=== PATIENT | male | born 1945 | race Caucasian/White ===

== ENCOUNTER 2020-03-28 04:57 | Observation (INO) ==
--- NOTE | 2020-02-23 15:01 | PAT Medication Instructions ---
Medication Instructions Date of Service February 23, 2020 Home Medications aspirin [Aspir-81] 81 mg PO QAM atorvastatin [Lipitor] 40 mg PO HS cholecalciferol (vitamin D3) [Vitamin D3] 25 mcg PO QAM cyanocobalamin (vitamin B-12) [Vitamin B-12] 1,000 mcg PO QAM fexofenadine-pseudoephedrine [Iqra-D 12 Hour] 1 tab PO Q12H PRN omega-3 fatty acids [Fish Oil] 1,000 mg PO QAM STOP taking 2 weeks before surgery If surgery is within 2 weeks, stop taking as soon as possible. omega-3 fatty acids [Fish Oil] 1,000 mg PO QAM DO NOT take the morning of surgery cholecalciferol (vitamin D3) [Vitamin D3] 25 mcg PO QAM cyanocobalamin (vitamin B-12) [Vitamin B-12] 1,000 mcg PO QAM fexofenadine-pseudoephedrine [Iqra-D 12 Hour] 1 tab PO Q12H PRN Take morning of surgery With a small sip of water, OTHERWISE NOTHING TO EAT OR DRINK AFTER MIDNIGHT: aspirin [Aspir-81] 81 mg PO QAM (unless otherwise instructed by your surgeon) Take evening before surgery atorvastatin [Lipitor] 40 mg PO HS fexofenadine-pseudoephedrine [Iqra-D 12 Hour] 1 tab PO Q12H PRN (if needed) Other Notes If you have any questions please call us at [phone] or [phone] or [phone] or [phone]
--- NOTE | 2020-02-27 10:52 | Anesthesiology Consultation ---
Date of Service February 27, 2020 Assessment & Plan (1) Encounter for pre-operative examination: COVID Status: As of 02/26 assessment, patient denies travel to endemic area, known exposure/sick contacts, or symptoms of COVID19. Patient instructed that they and their household members must follow strict social distancing guidelines, wear a mask in public and avoid travel for 14 days prior to surgery. Preoperative COVID19 testing to be completed prior to surgery per surgeon's arra ngements. Patient made aware to self-isolate as much as possible between COVID testing and surgery. Note sent to PCP re: aortic dilation. Pt reports PCP has been monitoring with bi-yearly echos, most recent was 03/22/18 so patient is due for echo soon. Chart Review Chart Review: Acceptable Risk for Surgery (pending PCP clearance 03/06, response re: updating echo) and Patient seen in Pre Admission Testing Teaching & Discussion Instructed NPO after midnight before surgery, except medications with 15 cc of water. Medication instructions provided according to the PAT guidelines. History Surgery Operation Date: 03/28/20 08:30 Proposed Procedures p Total Knee Arthroplasty - Dereck Garnett DO Height/Weight Height: 6 ft 3 in Weight: 116.5 kg Allergies Allergy/AdvReac Type Severity Reaction Status Date / Time Sulfa (Sulfonamide Allergy Mild Rash Verified 02/22/20 14:07 Antibiotics) contrast dye Allergy Mild Rash Uncoded 02/22/20 14:07 Medications Home Medications Medication Instructions Recorded Confirmed Last Taken aspirin [Aspir-81] 81 mg PO QAM 02/22/20 02/22/20 Unknown atorvastatin [Lipitor] 40 mg PO HS 02/22/20 02/22/20 Unknown cholecalciferol (vitamin D3) 25 mcg PO QAM 02/22/20 02/22/20 Unknown [Vitamin D3] cyanocobalamin (vitamin B-12) 1,000 mcg PO QAM 02/22/20 02/22/20 Unknown [Vitamin B-12] fexofenadine-pseudoephedrine 1 tab PO Q12H PRN 02/22/20 02/22/20 Unknown [Iqra-D 12 Hour] omega-3 fatty acids [Fish Oil] 1,000 mg PO QAM 02/22/20 02/22/20 Unknown Past Medical History Medical History Enlarged aorta medical doctor is watching Hyperlipidemia Osteoarthritis Exercise / Class Metabolic Activity II 4-5 Yardwork/Stairs/Walk up hill Past Surgical History Surgical History Hx of colonoscopy Past Anesthesia History No Hx of Anesthesia Complications and No Family Hx of Anesthesia Complications History of PONV No Hx of PONV and No Hx of Motion Sickness Social History Smoking Status: Never smoker Do You Dip or Chew Tobacco: No Hx Alcohol Use: No Hx Substance Use: No substance use type: does not use Review of Systems Pt denies any recent chest pain, shortness of breath, palpitations, cough, fever, URI, or uncontrolled acid reflux. Physical Exam Vital Signs BP: 120/77 P: 68bpm SPO2: 95% RA T: 97.9 F R: 16 ENMT Mouth: + dental restorations (crowns); no chipped teeth and no loose teeth Thyromental Distance: > or= 3.5 Finger Breadths Mallampati Class: I Mouth / Teeth: 1. Crowns Neck normal visual inspection; neck extension not limited Respiratory normal respiratory effort Auscultation: lungs clear to auscultation bilaterally Cardiovascular Rate/Rhythm: regular rate and regular rhythm Heart Sounds: no murmur Testing Laboratory Results 02/27/20 11:07 02/27/20 11:07 PT 10.6 Seconds (9.0-12.0) 02/27/20 11:07 INR 1.0 (0.9-1.1) 02/27/20 11:07 APTT 26.1 Seconds (21.0-31.0) 02/27/20 11:07 Hemoglobin A1c 5.6 % (4.5-5.6) 02/27/20 11:07 Urine Color Yellow 02/27/20 11:07 Urine Appearance Clear (Clear) 02/27/20 11:07 Urine pH 5.5 (4.5-7.5) 02/27/20 11:07 Ur Specific [place] 1.021 (1.000-1.030) 02/27/20 11:07 Urine Protein Negative (Negative) 02/27/20 11:07 Urine Glucose (UA) Negative (Negative) 02/27/20 11:07 Urine Ketones Negative (Negative) 02/27/20 11:07 Urine Nitrite Negative (Negative) 02/27/20 11:07 Ur Leukocyte Esterase Negative (Negative) 02/27/20 11:07 Blood Type A Positive 02/27/20 11:07 Antibody Screen NEGATIVE 02/27/20 11:07 Electrocardiogram Date: 02/27/20 Findings: + NSR @ (61bpm) and + no change from (1992) Chest X-Ray Date: 02/27/20 Findings: + NAD Echocardiogram Date: 03/22/19 EF: 60-64% Aortic root is mildly enlarged at 4.3 cm. Ascending aorta is severely enlarged at 5.0 cm. Grade I diastolic dysfunction of LV. Mild AR. Compared to last available study, ascending aorta diameter is stable, aortic root diameter has increased.
--- NOTE | 2020-02-27 11:36 | XRay Report ---
XR chest Pre-admission PA/Lat CLINICAL HISTORY: Preoperative chest COMPARISON STUDY: No previous studies for comparison. FINDINGS: The cardiac and mediastinal contours are normal. There is no evidence of focal pulmonary co nsolidation. There is no evidence of failure. No pleural effusions are visualized.[Degenerative robles es are present within the dorsal spine. IMPRESSION: No active disease in the chest. ACT 112: Negative or not required by law. Electronically signed by: Darryl Morocho M.D. 02/27/2020 11:35 AM
[2020-02-27 12:28] LABS: Basophils # (auto) 0.03 K/uL (0-0.2); Basophils % (auto) 0.5 %; Eosinophils # (auto) 0.21 K/uL (0-0.5); Eosinophils % (auto) 3.4 %; Hematocrit (blood only) 42.4 % (42-52); Hemoglobin 14.2 g/dL (14.0-18.0); Immature Granulocytes # (auto) 0.01 K/uL (0.00-0.02); Immature Granulocytes % (auto) 0.2 %; Lymphocytes # (auto) 1.98 K/uL (1.2-3.4); Lymphocytes % (auto) 31.6 %; Mean Corpuscular Hemoglobin 31.4 pg (25-34); Mean Corpuscular Hgb Conc 33.5 g/dL (32-36); Mean Corpuscular Volume 93.8 fL (80-100); Mean Platelet Volume 10.4 fL (7.4-10.4); Monocytes # (auto) 0.73 K/uL (0.11-0.59); Monocytes % (auto) 11.7 %; Neutrophils % (auto) 52.6 %; Platelet Count 228 K/uL (130-400); RDW Coefficient of Variation 13.5 % (11.5-14.5); RDW Standard Deviation 46.2 fL (36.4-46.3); Red Blood Count 4.52 M/uL (4.7-6.1); White Blood Count 6.26 K/uL (4.8-10.8)
[2020-02-27 12:31] LABS: Appearance Urine Clear (Clear); Bilirubin Urine Negative (Negative); Blood Urine Negative (Negative); Color Urine Yellow; Glucose Urine UA Negative (Negative); Ketones Urine Negative (Negative); Leukocyte Esterase Urine Negative (Negative); Nitrite Urine Negative (Negative); Protein Urine Negative (Negative); Specific Gravity Urine 1.021 (1.000-1.030); Urobilinogen Urine Negative (Negative); pH Urine 5.5 (4.5-7.5)
[2020-02-27 12:42] LABS: Albumin Level 3.4 gm/dl (3.4-5.0); Calcium 8.7 mg/dl (8.5-10.1); Creatinine Clr Calc Pharmacy 84.6 ml/min; Est GFR (African American) 79.4; Est GFR (Non-African American) 68.5; Potassium 4.4 mmol/L (3.5-5.1)
[2020-02-27 12:46] LABS: Estimated Average Glucose 114 mg/dl; Hemoglobin A1C 5.6 % (4.5-5.6)
[2020-02-27 12:53] LABS: Partial Thromboplastin Ratio 0.9; Partial Thromboplastin Time 26.1 Seconds (21.0-31.0); Prothrombin Time 10.6 Seconds (9.0-12.0)
--- NOTE | 2020-02-28 06:08 | Electrocardiogram Report ---
Test Reason : Blood Pressure : / mmHG Vent. Rate : 061 BPM Atrial Rate : 061 BPM P-R Int : 204 ms QRS Dur : 102 ms QT Int : 418 ms P-R-T Axes : 065 063 062 degrees QTc Int : 420 ms Normal sinus rhythm Normal ECG When compared with ECG of 06-FEB-1993 10:12, No significant change was found Confirmed by Brian Cheema ([id number]) on 02/27/2020 5:09:30 PM Referred By: Dereck Garnett Confirmed By:William Cheema
--- NOTE | 2020-02-28 08:41 | History & Physical Report ---
Date of Service February 28, 2020 date of procedure: 03/28/20 procedure: Left Total Knee Arthroplasty Assessment & Plan (1) Arthritis of knee, left: Risks and benefits of procedure discussed in detail today, patient would like to proceed with a Left total knee replacement at [facility] as scheduled. will obtain medical clearance from Dr. Tierney prior to surgery as well as obtain PATs at [facility]. Will place on ASA 81mg po bid x 1 month post op, f/u 2 weeks post op for routine post-operative care and x-ray, sooner if having any problems. will make arrangements for HHPT at the time of discharge. At this point in time, has failed conservative measures and would like to proceed with surgical intervention. The risks and benefits have been discussed including, but not limited to, risk of infection, nerve injury, stiffness, loss of motion, failure to improve, etc. Reasonable outcomes and options of treatment were discussed. An explanation of appropriate alternatives to the procedure that may be advantageous were discussed and their risks and benefits, as well as the risks and benefits of not proceeding with treatment. I offered to answer any additional inquiries concerning the treatment involved. All the patient's questions were answered. The patient is agreeable, understanding of the treatment plan and alternatives, and wishes to proceed with the treatment plan. History of Present Illness Chief Complaint: left knee pain Primary Care Provider: José Miguel Mata DO Cy is a 74 year old male who complains of left knee pain, presents for pre- op evaluation prior to a left total knee replacement by dr Garnett at [facility]. He complains of pain, decreased range of motion in the left knee. He states that the symptoms have been chronic and non-traumatic and states that the symptoms are moderate-severe. The pain is described as aching, sharp and throbbing. His symptoms are aggravated by ascending stairs, daily activities, first steps while awake walking. Prior NSAIDs include IBU and aleve. He has been treated with previous cortisone injections in the past without much relief. His x-rays show advanced DJD of his left knee with bone on bone changes, osteophyte formation and varus alignment. Allergies Allergy/AdvReac Type Severity Reaction Status Date / Time Sulfa (Sulfonamide Allergy Mild Rash Verified 02/22/20 14:07 Antibiotics) contrast dye Allergy Mild Rash Uncoded 02/22/20 14:07 Home Medications Home Medications Medication Instructions Recorded Confirmed Type aspirin [Aspir-81] 81 mg PO QAM 02/22/20 02/22/20 History atorvastatin [Lipitor] 40 mg PO HS 02/22/20 02/22/20 History cholecalciferol (vitamin D3) 25 mcg PO QAM 02/22/20 02/22/20 History [Vitamin D3] cyanocobalamin (vitamin B-12) 1,000 mcg PO QAM 02/22/20 02/22/20 History [Vitamin B-12] fexofenadine-pseudoephedrine 1 tab PO Q12H PRN 02/22/20 02/22/20 History [Iqra-D 12 Hour] omega-3 fatty acids [Fish Oil] 1,000 mg PO QAM 02/22/20 02/22/20 History Past Med/Surg History Medical History Enlarged aorta medical doctor is watching Hyperlipidemia Osteoarthritis Surgical History Hx of colonoscopy Social History Smoking Status: Never smoker Second Hand Exposure: No; Do You Dip or Chew Tobacco: No; Tobacco Cessation Education Requested by Patient: No Hx Alcohol Use: No Hx Substance Use: No Preferred Language: Kazakh Communication Ability: Effective Supervisor Mixing Required: No Beliefs That Will Affect Care: None Current Living Situation: Spouse Other Information That Helps Us Care for You: No Feels Safe at Home: Yes Safety Concerns: Feels Safe At This Time Assistive Devices: Glasses Review of Systems Review of Systems: All systems reviewed & are unremarkable except as noted in HPI & below Constitutional: no fever, no chills and no sweats Respiratory: no cough and no dyspnea Cardiovascular: no chest pain, no dyspnea and no orthopnea Gastrointestinal: no abdominal pain, no nausea and no vomiting Musculoskeletal: as per Subjective / HPI Physical Exam Physical Exam: HT: 6ft 3in WT: 116.5kg BP: 126/84 Pulse: 65 Constitutional: WD/WN, vitals as above no acute distress Respiratory: normal respiratory effort, lungs clear to auscultation no respiratory distress, no labored breathing and does not use accessory muscles Cardiovascular: RRR, no murmur, no edema Gastrointestinal (Abdomen): normal bowel sounds, soft, nontender, no hepatosplenomegaly Musculoskeletal: Knee: + knee abnormal to inspection (left knee), + deformity (varus alignment), + effusion (+1 effusion), + limited ROM of knee (ROM 0/3/110), + knee ROM with crepitation, + joint line tenderness (medial joint line) and + Bull's sign positive; no skin erythema, no ecchymosis, no valgus laxity, no varus laxity, anterior drawer test negative, Uma's sign negative and pivot shift test negative Results & Data Results & Data ([facility]) Laboratory Results Laboratory Results WBC 6.26 K/uL (4.8-10.8) 02/27/20 11:07 RBC 4.52 M/uL (4.7-6.1) L 02/27/20 11:07 Hgb 14.2 g/dL (14.0-18.0) 02/27/20 11:07 Hct 42.4 % (42-52) 02/27/20 11:07 MCV 93.8 fL (80-100) 02/27/20 11:07 MCH 31.4 pg (25-34) 02/27/20 11:07 MCHC 33.5 g/dL (32-36) 02/27/20 11:07 RDW Std Deviation 46.2 fL (36.4-46.3) 02/27/20 11:07 RDW Coeff of Yue 13.5 % (11.5-14.5) 02/27/20 11:07 Plt Count 228 K/uL (130-400) 02/27/20 11:07 MPV 10.4 fL (7.4-10.4) 02/27/20 11:07 Immature Gran % (Auto) 0.2 % 02/27/20 11:07 Neut % (Auto) 52.6 % 02/27/20 11:07 Lymph % (Auto) 31.6 % 02/27/20 11:07 Otero % (Auto) 11.7 % 02/27/20 11:07 Eos % (Auto) 3.4 % 02/27/20 11:07 Baso % (Auto) 0.5 % 02/27/20 11:07 Neut # (Auto) 3.30 K/uL (1.4-6.5) 02/27/20 11:07 Lymph # (Auto) 1.98 K/uL (1.2-3.4) 02/27/20 11:07 Otero # (Auto) 0.73 K/uL (0.11-0.59) H 02/27/20 11:07 Eos # (Auto) 0.21 K/uL (0-0.5) 02/27/20 11:07 Baso # (Auto) 0.03 K/uL (0-0.2) 02/27/20 11:07 Immature Gran # (Auto) 0.01 K/uL (0.00-0.02) 02/27/20 11:07 PT 10.6 Seconds (9.0-12.0) 02/27/20 11:07 INR 1.0 (0.9-1.1) 02/27/20 11:07 APTT 26.1 Seconds (21.0-31.0) 02/27/20 11:07 PTT Ratio 0.9 02/27/20 11:07 Sodium 141 mmol/L (136-145) 02/27/20 11:07 Potassium 4.4 mmol/L (3.5-5.1) 02/27/20 11:07 Chloride 111 mmol/L (98-107) H 02/27/20 11:07 Carbon Dioxide 27 mmol/L (21-32) 02/27/20 11:07 Anion Gap 3.0 (3-11) 02/27/20 11:07 BUN 21 mg/dl (7-18) H 02/27/20 11:07 Creatinine 1.07 mg/dl (0.6-1.4) 02/27/20 11:07 Est Cr Clr Drug Dosing 84.6 ml/min 02/27/20 11:07 Est GFR ( Amer) 79.4 02/27/20 11:07 Est GFR (Non-Af Amer) 68.5 02/27/20 11:07 BUN/Creatinine Ratio 20.0 (10-20) 02/27/20 11:07 Glucose 74 mg/dl (70-99) 02/27/20 11:07 Estimat Average Glucose 114 mg/dl 02/27/20 11:07 Hemoglobin A1c 5.6 % (4.5-5.6) 02/27/20 11:07 Calcium 8.7 mg/dl (8.5-10.1) 02/27/20 11:07 Albumin 3.4 gm/dl (3.4-5.0) 02/27/20 11:07 Urine Color Yellow 02/27/20 11:07 Urine Appearance Clear (Clear) 02/27/20 11:07 Urine pH 5.5 (4.5-7.5) 02/27/20 11:07 Ur Specific [place] 1.021 (1.000-1.030) 02/27/20 11:07 Urine Protein Negative (Negative) 02/27/20 11:07 Urine Glucose (UA) Negative (Negative) 02/27/20 11:07 Urine Ketones Negative (Negative) 02/27/20 11:07 Urine Blood Negative (Negative) 02/27/20 11:07 Urine Nitrite Negative (Negative) 02/27/20 11:07 Urine Bilirubin Negative (Negative) 02/27/20 11:07 Urine Urobilinogen Negative (Negative) 02/27/20 11:07 Ur Leukocyte Esterase Negative (Negative) 02/27/20 11:07 Blood Type A Positive 02/27/20 11:07 Antibody Screen NEGATIVE 02/27/20 11:07 Diagnostic Findings Left Knee X-ray demonstrates advanced degenerative changes to the left knee, greatest medial compartments and patellofemoral joint, showing joint space narrowing, osteophyte formation and subchondral sclerosis. no acute bony pathology noted.
[2020-03-28] MEDS ORDERED: LR 500ML BOLUS, THEN 15ML/HR IV SCH (06:00)
[2020-03-28] MEDS ORDERED: FAMOTIDINE 20 MG TAB PO SCH (06:00)
[2020-03-28] MEDS ORDERED: TRANEXAMIC ACID 1,000 MG **IV Intra-op IV SCH (06:00)
[2020-03-28] MEDS ORDERED: ROPIVACAINE 0.5% HCL/PF 150 MG, BUPIVACAINE 0.5% MPF 30 ML, EPINEPHrine 30MG/30ML (OR U... INFIL SCH (06:00)
[2020-03-28] MEDS ORDERED: ceFAZolin 2000MG 2,000 MG/15 ML SYR IV SCH (06:00)
[2020-03-28] MEDS ORDERED: ACETAMINOPHEN 500 MG TAB PO SCH (06:00)
[2020-03-28] MEDS ORDERED: dexAMETHasone 4 MG TAB PO SCH (06:00)
[2020-03-28] MEDS ORDERED: TRANEXAMIC ACID 1,000 MG **IV Pre-op IV SCH (06:00)
[2020-03-28] MEDS ORDERED: GABAPENTIN 300 MG CAP PO SCH (06:00)
[2020-03-28] MEDS ORDERED: METOCLOPRAMIDE HCL 10 MG TABLET PO SCH (06:00)
[2020-03-28] MEDS ORDERED: ROPIVACAINE 0.5% 5 MG/ML 30 ML VIAL ONE (06:23)
[2020-03-28] MEDS ORDERED: BUPIVACAINE 0.5 % 5 MG/1 ML PF 10ML VIAL ONE (06:23)
[2020-03-28] MEDS ORDERED: BACITRACIN INJ 50,000 UNIT VIAL ONE (06:30)
[2020-03-28] MEDS ORDERED: ORTHO JOINT ANESTHETIC ONE (06:30)
[2020-03-28] MEDS ORDERED: LIDOCAINE HCL 2% 2 ML VIAL/AMP(20MG/ML) INFIL ONE (06:35)
[2020-03-28] MEDS ORDERED: MIDAZOLAM HCL 1 MG/ML 2ML VIAL ONE (06:35)
[2020-03-28] MEDS ORDERED: PROPOFOL IV EMULSION 10 MG/ML 20 ML VIAL IV ONE ×2 (06:35→08:38)
[2020-03-28] MEDS ORDERED: ePHEDrine sulfate 50 MG/ML AMP IV PRN (06:50)
[2020-03-28] MEDS ORDERED: HYDROmorphone INJ 1 MG/ML SYRINGE IV PRN ×2 (06:50→09:28)
[2020-03-28] MEDS ORDERED: KETOROLAC 30 MG/ML VIAL IV PRN (06:50)
[2020-03-28] MEDS ORDERED: ATROPINE SULFATE 0.1 MG/ML 10ML SYR IV PRN (06:50)
[2020-03-28] MEDS ORDERED: ONDANSETRON INJ 2 MG/ML 2 ML VIAL IV PRN ×2 (06:50→09:28)
--- NOTE | 2020-03-28 07:12 | History & Physical Bridge Note ---
Date of Service March 28, 2020 History & Physical Bridge Note I have examined the patient, reviewed the History & Physical and in the interval since the performance of the History & Physical I have noted the following changes of clinical significance: no changes noted
--- NOTE | 2020-03-28 08:32 | Operative Report ---
Post Operative Report Pre & Post Diagnosis Operation Date: 03/28/20 07:00 Pre-Op Diagnosis: Left knee degenerative joint disease Post-Op Diagnosis: Left knee degenerative joint disease I identified the patient and participated in the time-out.: Yes Procedure 10 polyethylene 35 oval patella 8 tibiaUtilizing Babin & Neph neris 2 patient matched total knee arthroplasty size 8 femur Operation Date: 03/28/20 07:00 Actual Procedures p Left Total Knee Arthroplasty, Cemented(Left) - Dereck Garnett DO Surgeon Dereck Garnett DO Upholstery Estimator Karl MARIN Estimated Blood Loss 5 Findings Consistent with Post-Op Diagnosis Patient presents with severe end-stage tricompartmental degenerative joint disease varus alignment subchondral sclerosis marginal osteophytes [id number] eburnated bone moderate to large effusion with varus alignment left knee Specimens Bone and cartilage Drains Medium bore Hemovac Anesthesia Type MAC Spinal Regional Complications none Disposition Accompanied Patient To Recovery: No Disposition: Recovery Room Indications Patient presents with his severe end-stage tricompartmental degenerative joint disease after failed attempted conservative management with physical therapy anti-inflammatories relative rest activity modification corticosteroid injection Visco supplementation the above intraoperative findings were noted. Description of Procedure After proper prepping and draping of the left lower extremity anterior midline incision was made over the region of the extensor extensor mechanism after meticulous hemostasis was obtained and maintained in subcutaneous tissues a medial parapatellar incision was made The patella was subluxed lateralward the medial lateral gutter were cleaned from any hypertrophic synovitis and scar tissue of the distal femoral block was placed and the distal femoral osteotomy cut was made subsequently the chamfers anterior and posterior osteotomy cuts were made utilizing the 4-in-1 block the tibia was subsequently subluxed anteriorward medial and ateral meniscal remnants were excised in their entirety remnants of the anterior and posterior cruciate ligaments were excised in their entirety excellent exposure of the proximal tibia was obtained the tibial osteotomy guide was placed on the proximal tibial osteotomy cut was made once again the knee was irrigated with copious amounts of sterile saline solution the patella was subsequently everted lateralward thickened scar tissue around the patella was removed the patella was subsequently cut utilizing a freehand technique and was drilled prepared for final preparation and placement of patella socially flexion-extension gaps were checked and the equal and symmetric trials were placed to the appropriate femoral and tibial trials with poly-spacer being placed for equal flexion and extension gaps and full range of motion including extension to 0 and flexion to 140 the trial components after having been taken to recovery range of motion was subsequently removed meticulous hemostasis was obtained and maintained subsequently a knee block injection of chante int cocktail including ropivacaine 0.5% 150 mg. Bupivacaine 0.5% epinephrine 1- 200,030 mL's toradol 30 mg dexamethasone 4 mg ketamine 10 mg clonidine 100 micrograms normal saline solution 30 mg was infiltrated into the soft tissues of the posterior knee medial lateral gutters and periosteal synovium special attention was paid to protect neurovascular structures at all times subsequently trial components having been removed the knee was irrigated with sterile saline solution. debris was removed the proximal tibia was subsequently prepared and was made ready for the placement of the tibial component tibial component was also cemented and tamped into position the femoral component was subsequently placed and cemented in the position the patellar component was subsequently cemented in position because hemostasis once again obtained and maintained wound having been thoroughly irrigated with debridement and debridement lavage was performed as well as a medial parapatellar incision closed with #1 Vicryl in interrupted fashion subcutaneous was closed with #2 Vicryl skin was closed with skin clips. PA-C was necessary for prepping and drapping as well as wound closure of deep fascia Sub cutaneous tissue and skin and was necessary for the case. A sterile compressive dressing was placed patient was taken to recovery in stable condition of report dictated by Tamir I attest to the content of the Intraoperative Record and any orders documented therein. Any exceptions are noted below. I attest to the content of the Intraoperative Record and any orders documented therein. Any exceptions are noted below.
[2020-03-28] MEDS ORDERED: MAGNESIUM HYDROXIDE SUSP 30 ML UDC PO PRN (09:28)
[2020-03-28] MEDS ORDERED: diphenhydrAMINE Capsule 25 MG CAP PO PRN (09:28)
[2020-03-28] MEDS ORDERED: NALOXONE HCL 0.4 MG/1 ML VIAL/CARP IV PRN (09:28)
[2020-03-28] MEDS ORDERED: METOCLOPRAMIDE HCL INJ 5 MG/ML 2 ML VIAL IV PRN (09:28)
[2020-03-28] MEDS ORDERED: bisacodyL 10 MG SUPP PR PRN (09:28)
[2020-03-28] MEDS ORDERED: SODIUM CHLORIDE 0.9% 1000ML 1,000 ML IV SCH (09:30)
--- NOTE | 2020-03-28 10:01 | XRay Report ---
XR knee LT 1 or 2V routine HISTORY: 74 years-old Male Surgical Post Op [knee total joint arthroplasty COMPARISON: None TECHNIQUE: 2 views of the left knee FINDINGS: Left knee total joint arthroplasty and patella resurfacing. 1.6 cm radiodensity projecting of the med ial joint space may reflect cement material. Surgical drainage catheter. Expected post surgical soft tissue swelling and deep tissue air. No acute fracture or malalignment. IMPRESSION: Satisfactory alignment of the left knee total joint arthroplasty. ACT 112: Negative or not required by law. The above report was generated using voice recognition software. It may contain grammatical, syntax o r spelling errors. Electronically signed by: Victoriano Sierra M.D. 03/28/2020 10:00 AM
--- NOTE | 2020-03-28 10:22 | Anesthesiology Progress Note ---
Date of Service March 28, 2020 Anesthesia Post Procedure Vital Signs Vital Signs: Temp Pulse Pulse Resp BP BP Pulse Ox 03/28/20 10:10 60 14 103/66 94 03/28/20 10:00 58 L 16 101/61 94 03/28/20 09:50 57 L 12 92/64 L 95 03/28/20 09:40 54 L 12 98/70 L 94 03/28/20 09:30 59 L 12 96/67 L 95 03/28/20 09:20 60 16 92/60 L 95 03/28/20 09:10 68 16 102/62 99 03/28/20 09:07 36.6 C 65 18 97/56 L 98 03/28/20 05:22 36.4 C L 56 L 18 123/86 96 Pain Intensity Left Knee: Pain Intensity: 0 Transfer of Care Handoff Completed per policy Notes Mental Status: alert / awake / arousable Patient Amnestic to Procedure: Yes Nausea / Vomiting: adequately controlled Pain: adequately controlled Airway Patency, RR, SpO2: stable & adequate BP & HR: stable & adequate Hydration State: stable & adequate Neuraxial Anesthesia: was administered and sensory block is resolving Anesthetic Complications: no major complications apparent
[2020-03-28] MEDS: KETOROLAC TROMETHAMINE 15 MG/ML VIAL IV SCH ×3 (11:40→23:00)
[2020-03-28] MEDS: ACETAMINOPHEN 500 MG TAB PO SCH ×2 (13:56→22:57)
[2020-03-28] MEDS: ceFAZolin 2000MG 2,000 MG/15 ML SYR IV SCH ×2 (14:58→22:59)
[2020-03-28] MEDS: oxyCODONE HCL IR 5 MG TAB (IMMEDIATE RELEASE) PO PRN (18:06)
[2020-03-28] MEDS: ASPIRIN 81 MG ECTAB PO SCH (20:20)
[2020-03-28] MEDS: DOCUSATE SODIUM 100 MG CAP PO SCH (20:21)
[2020-03-28] MEDS ORDERED: ATORVASTATIN 40 MG TAB PO SCH (21:00)
[2020-03-28] MEDS ORDERED: SENNA 8.6 MG TAB PO SCH (21:00)
[2020-03-29 03:12] VITALS: O2SAT 95
[2020-03-29] MEDS: ACETAMINOPHEN 500 MG TAB PO SCH ×2 (05:31→09:53)
[2020-03-29] MEDS: KETOROLAC TROMETHAMINE 15 MG/ML VIAL IV SCH (05:31)
[2020-03-29 07:08] LABS: Hematocrit (blood only) 34.7 % (42-52); Hemoglobin 11.8 g/dL (14.0-18.0); Mean Corpuscular Hemoglobin 31.7 pg (25-34); Mean Corpuscular Volume 93.3 fL (80-100); Mean Platelet Volume 10.5 fL (7.4-10.4); Platelet Count 172 K/uL (130-400); RDW Coefficient of Variation 13.5 % (11.5-14.5); RDW Standard Deviation 46.1 fL (36.4-46.3); Red Blood Count 3.72 M/uL (4.7-6.1); White Blood Count 13.38 K/uL (4.8-10.8)
[2020-03-29 07:23] VITALS: PULSE 53; TEMP 97.5
[2020-03-29 07:46] LABS: BUN Creatinine Ratio 21.1 (10-20); Calcium 8.1 mg/dl (8.5-10.1); Est GFR (African American) 74.3; Est GFR (Non-African American) 64.1
--- NOTE | 2020-03-29 08:09 | Orthopedic Progress Note ---
Date of Service March 29, 2020 Assessment & Plan (1) History of total left knee replacement: POD #1 s/p Left TKA pt/ot dvt proph with EUGENIA/SCD/ASA plan for d/c home with HHPT later today Admission and Anticipated Discharge Date Admission Date: March 28, 2020 Subjective POD #1 s/p Left TKA Review of Systems Constitutional: no fever, no chills and no sweats Respiratory: no cough and no dyspnea Cardiovascular: no chest pain and no dyspnea Gastrointestinal: no abdominal pain, no nausea and no vomiting Physical Exam Physical Exam: Vital Signs Temp 36.4 C L 03/29/20 07:20 Pulse 53 L 03/29/20 07:20 Resp 16 03/29/20 07:20 BP 107/63 03/29/20 07:20 Pulse Ox 95 03/29/20 07:20 Intake & Output 03/28/20 03/29/20 03/29/20 18:59 06:59 18:59 Intake Total 1700 / 3121.667 1421.667 / 3121.66 7 Output Total 65 / 1465 1400 / 1465 600 / 600 Balance 1635 / 1656.667 21.667 / 1656.667 -600 / -600 Intake: IV 900 / 1701.667 801.667 / 1701.667 Lr 1,000 ml @ 15 mls/hr IV . 700 / 700 Q24H [facility] Rx#:[id number] Nss 1000ML 1,0 00 ml @ 100 mls/ 801.667 / 801.667 hr IV .Q10H [facility] Rx#:[id number] TRANEXAMIC ACI D / 0.7% NACL 1, 200 / 200 000 mg In 100 ml @ 600 mls/hr IV TODAY@0600 [facility] Rx#:[id number] IV Perioperative 800 / 800 Oral 620 / 620 Output: Urine 1100 / 1100 600 / 600 Estimated Blood Loss 5 / 5 Drain Output 60 / 360 300 / 360 Left Hemovac # 1 60 / 360 300 / 360 Other: # Unmeasured Voi ds 1 Constitutional: WD/WN, vitals as above no acute distress Musculoskeletal: Left Leg: NVDI, calf SNT, negative darrion sign. DP palpable, able to wiggle toes/ankle movement without difficulty. dressing clean dry and intact. Results & Data ([facility]) Vital Signs (Past 12 Hours) Vital Signs Temp Pulse Resp BP BP Pulse Ox 03/29/20 07:20 36.4 C L 53 L 16 107/63 95 03/29/20 03:11 36.8 C 57 L 18 91/55 L 95 03/28/20 23:32 91/54 L 03/28/20 23:30 36.6 C 60 16 89/58 L 94 Laboratory Results Laboratory Results WBC 13.38 K/uL (4.8-10.8) H 03/29/20 06:28 RBC 3.72 M/uL (4.7-6.1) L 03/29/20 06:28 Hgb 11.8 g/dL (14.0-18.0) L 03/29/20 06:28 Hct 34.7 % (42-52) L 03/29/20 06:28 MCV 93.3 fL (80-100) 03/29/20 06:28 MCH 31.7 pg (25-34) 03/29/20 06:28 MCHC 34.0 g/dL (32-36) 03/29/20 06:28 RDW Std Deviation 46.1 fL (36.4-46.3) 03/29/20 06:28 RDW Coeff of Yue 13.5 % (11.5-14.5) 03/29/20 06:28 Plt Count 172 K/uL (130-400) 03/29/20 06:28 MPV 10.5 fL (7.4-10.4) H 03/29/20 06:28 Immature Gran % (Auto) 0.2 % 02/27/20 11:07 Neut % (Auto) 52.6 % 02/27/20 11:07 Lymph % (Auto) 31.6 % 02/27/20 11:07 [place] % (Auto) 11.7 % 02/27/20 11:07 Eos % (Auto) 3.4 % 02/27/20 11:07 Baso % (Auto) 0.5 % 02/27/20 11:07 Neut # (Auto) 3.30 K/uL (1.4-6.5) 02/27/20 11:07 Lymph # (Auto) 1.98 K/uL (1.2-3.4) 02/27/20 11:07 [place] # (Auto) 0.73 K/uL (0.11-0.59) H 02/27/20 11:07 Eos # (Auto) 0.21 K/uL (0-0.5) 02/27/20 11:07 Baso # (Auto) 0.03 K/uL (0-0.2) 02/27/20 11:07 Immature Gran # (Auto) 0.01 K/uL (0.00-0.02) 02/27/20 11:07 PT 10.6 Seconds (9.0-12.0) 02/27/20 11:07 INR 1.0 (0.9-1.1) 02/27/20 11:07 APTT 26.1 Seconds (21.0-31.0) 02/27/20 11:07 PTT Ratio 0.9 02/27/20 11:07 Sodium 142 mmol/L (136-145) 03/29/20 06:28 Potassium mmol/L (3.5-5.1) 03/29/20 06:28 Chloride 112 mmol/L (98-107) H 03/29/20 06:28 Carbon Dioxide 24 mmol/L (21-32) 03/29/20 06:28 Anion Gap 6.0 (3-11) 03/29/20 06:28 BUN 24 mg/dl (7-18) H 03/29/20 06:28 Creatinine 1.13 mg/dl (0.6-1.4) 03/29/20 06:28 Est Cr Clr Drug Dosing 79.0 ml/min 03/29/20 06:28 Est GFR ( Amer) 74.3 03/29/20 06:28 Est GFR (Non-Af Amer) 64.1 03/29/20 06:28 BUN/Creatinine Ratio 21.1 (10-20) H 03/29/20 06:28 Glucose 95 mg/dl (70-99) 03/29/20 06:28 Estimat Average Glucose 114 mg/dl 02/27/20 11:07 Hemoglobin A1c 5.6 % (4.5-5.6) 02/27/20 11:07 Calcium 8.1 mg/dl (8.5-10.1) L 03/29/20 06:28 Albumin 3.4 gm/dl (3.4-5.0) 02/27/20 11:07 Urine Color Yellow 02/27/20 11:07 Urine Appearance Clear (Clear) 02/27/20 11:07 Urine pH 5.5 (4.5-7.5) 02/27/20 11:07 Ur Specific [place] 1.021 (1.000-1.030) 02/27/20 11:07 Urine Protein Negative (Negative) 02/27/20 11:07 Urine Glucose (UA) Negative (Negative) 02/27/20 11:07 Urine Ketones Negative (Negative) 02/27/20 11:07 Urine Blood Negative (Negative) 02/27/20 11:07 Urine Nitrite Negative (Negative) 02/27/20 11:07 Urine Bilirubin Negative (Negative) 02/27/20 11:07 Urine Urobilinogen Negative (Negative) 02/27/20 11:07 Ur Leukocyte Esterase Negative (Negative) 02/27/20 11:07 Blood Type A Positive 02/27/20 11:07 Antibody Screen NEGATIVE 02/27/20 11:07 Diagnostic Findings XR knee LT 1 or 2V routine HISTORY: 74 years-old Male Surgical Post Op [knee total joint arthroplasty COMPARISON: None TECHNIQUE: 2 views of the left knee FINDINGS: Left knee total joint arthroplasty and patella resurfacing. 1.6 cm radiodensity projecting of the medial joint space may reflect cement material. Surgical drainage catheter. Expected post surgical soft tissue swelling and deep tissue air. No acute fracture or malalignment. IMPRESSION: Satisfactory alignment of the left knee total joint arthroplasty. finding noted, when compared to pre-op films, no changes noted to the radiodensity along medial joint space.
[2020-03-29] MEDS ORDERED: CYANOCOBALAMIN 500 MCG TABLET (VITAMIN B-12) PO SCH (09:00)
[2020-03-29] MEDS ORDERED: MULTIVITAMIN TAB PO SCH (09:00)
[2020-03-29] MEDS ORDERED: CHOLECALCIFEROL 1,000 UNITS 25 MCG TAB PO SCH (09:00)
--- NOTE | 2020-03-29 09:07 | Anesthesiology Progress Note ---
Date of Service March 29, 2020 Anesthesia Post Procedure Vital Signs Vital Signs: Temp Pulse Pulse Resp BP BP Pulse Ox 03/29/20 07:20 36.4 C L 53 L 16 107/63 95 03/29/20 03:11 36.8 C 57 L 18 91/55 L 95 03/28/20 23:32 91/54 L 03/28/20 23:30 36.6 C 60 16 89/58 L 94 03/28/20 19:38 36.8 C 65 18 99/61 L 92 03/28/20 16:00 36.2 C L 69 18 103/67 92 03/28/20 13:46 75 16 100/70 91 03/28/20 11:15 60 16 104/68 92 03/28/20 10:30 57 L 14 100/65 94 03/28/20 10:20 36.7 C 55 L 14 100/65 94 03/28/20 10:10 60 14 103/66 94 03/28/20 10:00 58 L 16 101/61 94 03/28/20 09:50 57 L 12 92/64 L 95 03/28/20 09:40 54 L 12 98/70 L 94 03/28/20 09:30 59 L 12 96/67 L 95 03/28/20 09:20 60 16 92/60 L 95 03/28/20 09:10 68 16 102/62 99 Pain Intensity Left Knee: Pain Intensity: 2 Notes Mental Status: alert / awake / arousable and participated in evaluation Nausea / Vomiting: adequately controlled Pain: adequately controlled Airway Patency, RR, SpO2: stable & adequate BP & HR: stable & adequate Hydration State: stable & adequate
[2020-03-29] MEDS: ASPIRIN 81 MG ECTAB PO SCH (09:52)
[2020-03-29] MEDS: DOCUSATE SODIUM 100 MG CAP PO SCH (09:53)
[2020-03-29] MEDS: oxyCODONE HCL IR 5 MG TAB (IMMEDIATE RELEASE) PO PRN (09:54)
[2020-03-29 11:44] VITALS: BP 89/58
--- NOTE | 2020-03-30 07:13 | Discharge Summary ---
Date of Service date of discharge: March 29, 2020 date of admission: 03-28-20 Admission HPI Per Admitting Provider Cy is a 74 year old male who complains of left knee pain, presents for pre- op evaluation prior to a left total knee replacement by dr Garnett at [facility]. He complains of pain, decreased range of motion in the left knee. He states that the symptoms have been chronic and non-traumatic and states that the symptoms are moderate-severe. The pain is described as aching, sharp and throbbing. His symptoms are aggravated by ascending stairs, daily activities, first steps while awake walking. Prior NSAIDs include IBU and aleve. He has been treated with previous cortisone injections in the past without much relief. His x-rays show advanced DJD of his left knee with bone on bone changes, osteophyte formation and varus alignment. Principal Diagnosis left knee osteoarthritis Discharge Exam Vital Signs Temp 36.4 C L 03/29/20 08:30 Pulse 53 L 03/29/20 08:30 Resp 16 03/29/20 08:30 BP 89/58 L 03/29/20 08:30 Pulse Ox 95 03/29/20 08:30 Intake & Output 03/29/20 03/30/20 03/30/20 18:59 06:59 18:59 Output Total 1150 / 1150 Balance -1150 / -1150 Weight 113.126 kg Output: Urine 1150 / 1150 Constitutional WD/WN, vitals as above no acute distress Musculoskeletal left knee: NVDI, calf SNT, negative darrion sign. DP palpable, able to wiggle toes/ankle movement without difficulty. dressing clean dry and intact. expected post-operative bruising noted. Discharge Data Allergies Allergy/AdvReac Type Severity Reaction Status Date / Time Sulfa (Sulfonamide Allergy Mild Rash Verified 03/28/20 05:26 Antibiotics) contrast dye Allergy Mild Rash Uncoded 03/28/20 05:26 Consultations 03/28/20 09:28 Consult Case Management - Discharge Planning Routine Procedures Performed Operation Date: 03/28/20 07:00 Actual Procedures p Left Total Knee Arthroplasty, Cemented(Left) - Dereck Garnett DO Ordered Studies 03/28/20 05:00 US - OR guided needle placemen Stat Hospital Course (1) History of total left knee replacement: POD #1 s/p Left TKA pt/ot dvt proph with EUGENIA/SCD/ASA plan for d/c home with HHPT later today Laboratory Results WBC 13.38 K/uL (4.8-10.8) H 03/29/20 06:28 RBC 3.72 M/uL (4.7-6.1) L 03/29/20 06:28 Hgb 11.8 g/dL (14.0-18.0) L 03/29/20 06:28 Hct 34.7 % (42-52) L 03/29/20 06:28 MCV 93.3 fL (80-100) 03/29/20 06:28 MCH 31.7 pg (25-34) 03/29/20 06:28 MCHC 34.0 g/dL (32-36) 03/29/20 06:28 RDW Std Deviation 46.1 fL (36.4-46.3) 03/29/20 06:28 RDW Coeff of Yue 13.5 % (11.5-14.5) 03/29/20 06:28 Plt Count 172 K/uL (130-400) 03/29/20 06:28 MPV 10.5 fL (7.4-10.4) H 03/29/20 06:28 Immature Gran % (Auto) 0.2 % 02/27/20 11:07 Neut % (Auto) 52.6 % 02/27/20 11:07 Lymph % (Auto) 31.6 % 02/27/20 11:07 [place] % (Auto) 11.7 % 02/27/20 11:07 Eos % (Auto) 3.4 % 02/27/20 11:07 Baso % (Auto) 0.5 % 02/27/20 11:07 Neut # (Auto) 3.30 K/uL (1.4-6.5) 02/27/20 11:07 Lymph # (Auto) 1.98 K/uL (1.2-3.4) 02/27/20 11:07 [place] # (Auto) 0.73 K/uL (0.11-0.59) H 02/27/20 11:07 Eos # (Auto) 0.21 K/uL (0-0.5) 02/27/20 11:07 Baso # (Auto) 0.03 K/uL (0-0.2) 02/27/20 11:07 Immature Gran # (Auto) 0.01 K/uL (0.00-0.02) 02/27/20 11:07 PT 10.6 Seconds (9.0-12.0) 02/27/20 11:07 INR 1.0 (0.9-1.1) 02/27/20 11:07 APTT 26.1 Seconds (21.0-31.0) 02/27/20 11:07 PTT Ratio 0.9 02/27/20 11:07 Sodium 142 mmol/L (136-145) 03/29/20 06:28 Potassium 3.9 mmol/L (3.5-5.1) 03/29/20 07:52 Chloride 112 mmol/L (98-107) H 03/29/20 06:28 Carbon Dioxide 24 mmol/L (21-32) 03/29/20 06:28 Anion Gap 6.0 (3-11) 03/29/20 06:28 BUN 24 mg/dl (7-18) H 03/29/20 06:28 Creatinine 1.13 mg/dl (0.6-1.4) 03/29/20 06:28 Est Cr Clr Drug Dosing 79.0 ml/min 03/29/20 06:28 Est GFR ( Amer) 74.3 03/29/20 06:28 Est GFR (Non-Af Amer) 64.1 03/29/20 06:28 BUN/Creatinine Ratio 21.1 (10-20) H 03/29/20 06:28 Glucose 95 mg/dl (70-99) 03/29/20 06:28 Estimat Average Glucose 114 mg/dl 02/27/20 11:07 Hemoglobin A1c 5.6 % (4.5-5.6) 02/27/20 11:07 Calcium 8.1 mg/dl (8.5-10.1) L 03/29/20 06:28 Albumin 3.4 gm/dl (3.4-5.0) 02/27/20 11:07 Urine Color Yellow 02/27/20 11:07 Urine Appearance Clear (Clear) 02/27/20 11:07 Urine pH 5.5 (4.5-7.5) 02/27/20 11:07 Ur Specific [place] 1.021 (1.000-1.030) 02/27/20 11:07 Urine Protein Negative (Negative) 02/27/20 11:07 Urine Glucose (UA) Negative (Negative) 02/27/20 11:07 Urine Ketones Negative (Negative) 02/27/20 11:07 Urine Blood Negative (Negative) 02/27/20 11:07 Urine Nitrite Negative (Negative) 02/27/20 11:07 Urine Bilirubin Negative (Negative) 02/27/20 11:07 Urine Urobilinogen Negative (Negative) 02/27/20 11:07 Ur Leukocyte Esterase Negative (Negative) 02/27/20 11:07 Blood Type A Positive 02/27/20 11:07 Antibody Screen NEGATIVE 02/27/20 11:07 Total Time Total Time Spent Total Time Spent (In Minutes): 20 Total Time Includes: Examination of the Patient, Discharge Planning and Medication Reconciliation Discharge Plan Discharge Items Patient Disposition: Home - Home Health Services Reason For Visit: Osteoarthritis Knee Left Discharge Diagnosis: left total knee replacement Condition on Discharge: Good Activity: Per Instructions section Lifting: Wait until after follow-up appointment Weightbearing Comment: WBAT with walker Non-emergency contact: Surgeon Call non-emergency contact if: you have any medication questions, your temperature is above 101, your wound has increased redness, your wound has increased drainage and your wound pain has increased Follow-up/Referrals: José Miguel Mata, [Primary Care Provider] - Diet: Regular Addtl Attending Provider Instructions: ACTIVITY RECOMMENDATIONS: SELF CARE INSTRUCTIONS AFTER TOTAL KNEE REPLACEMENT A. You may need to continue a physical therapy program after discharge from the hospital. There are several options available to you. Your doctor will assist you in selecting the best one for you. 1. An out-patient facility 2 to 3 times a week for therapy or home therapy. 2. Continue working on all exercises taught to you in the hospital. Your goals should be to increase bending of your knee to 90 degrees and beyond and to fully straighten your knee. B. You may progress at your own pace from walking with a walker or crutches to a cane; then to no assistive devices. C. Make walking a part of your daily routine. Be up as much as comfortable with rest periods throughout the day. Rest with leg elevation is very important. Use the ice wrap frequently for the first 3-4 weeks. D. There are no restrictions on activities. You may ride in a car, shop, participate in fl[employer] and oats and all social activities. E. Wear the long elastic stockings (EUGENIA hose) 20 hours a day for 2 weeks after surgery. They can be removed several times a day for laundering and for a bath. F. You may shower, no tub baths until cleared by your doctor. SPECIAL CARE INSTRUCTIONS: VERY IMPORTANT TO READ AND REVIEW A. There are a few signs you need to watch for after you are home. Call [facility] if you notice any of the followin. Increased severe knee pain. Some pain is expected especially when you exercise. 2. Increased swelling in your leg or knee; pain or swelling of the calf muscle in either lower leg. 3. Any fluid drainage from the incision. 4. Shortness of breath or chest pain. B. Please call [facility] at if you have any concerns or questions about your operation or recovery. The doctor or his nurse will return your call promptly. C. You must take antibiotics before dental work, bladder, bowel or other surgery. Your doctor will provide you with a permanent care to carry describing this precaution. IMPORTANT: * REMEMBER TO TAKE ASPIRIN, 81 MG, TWICE DAILY FOR 4 WEEKS UNLESS OTHERWISE DIRECTED. THIS IS YOUR BLOOD THINNER. * HIGH RISK PATIENTS MAY BE PRESCRIBED A STRONGER BLOOD THINNER. THIS WILL BE PROVIDED AT DISCHARGE. * CALL IF INCREASED PAIN, REDNESS, DRAINAGE OR FEVER GREATER THAT 101. * WEAR EUGENIA HOSE 20 HOURS PER DAY FOR 2 WEEKS. * DERMABOND Prineo- This is a mesh tape dressing that is covered with glue. It should remain in place until the incision is properly healed, usually 10-14 days. This dressing is designed to naturally slough off. You may trim the excess mesh tape as it peels off. Incision may be briefly wet in a shower. Dry immediately by blotting with a clean, dry towel. Do not bath or swim until instructed by your doctor. Do not scratch, rub, or pick at the dressing. Do not apply any topical ointments or lotions until dressing is completely removed and/or instructed by your doctor. There may be a small piece of suture material at one end of your incision. Do not pull or trim this. If it is bothersome or catching on clothing, you may cover it with a band-aid. IF INCISION IS LEAKING THROUGH DRESSING, CALL THE OFFICE . FOLLOW UP VISIT: If appointment is not already scheduled: Please call [facility] to make a follow-up appointment for 2 weeks after your surgery at . Pending Studies at Discharge: No Stand-Alone Forms: My [facility], Smoking Cessation Medications and DC Order Prescriptions: New aspirin 81 mg Tablet,Delayed Release (Dr/Ec) 81 mg PO BID 30 Days Qty: 60 RF: 0 acetaminophen 500 mg Tablet 1,000 mg PO Q8 21 Days Qty: 126 RF: 0 oxycodone 5 mg Tablet 5 - 10 mg PO Q6H PRN (Reason: pain) Qty: 30 RF: 0 docusate sodium 100 mg Capsule 100 mg PO BID 10 Days Qty: 20 RF: 0 cefadroxil 500 mg capsule 500 mg PO BID 10 Days Qty: 20 RF: 0 Continued atorvastatin [Lipitor] 40 mg Tablet 40 mg PO HS RF: 0 cyanocobalamin (vitamin B-12) [Vitamin B-12] 1,000 mcg Tablet 1,000 mcg PO QAM RF: 0 fexofenadine-pseudoephedrine [Iqra-D 12 Hour] 60-120 mg Tablet Extended Release 12 Hr 1 tab PO Q12H PRN (Reason: allergies) RF: 0 cholecalciferol (vitamin D3) [Vitamin D3] 25 mcg (1,000 unit) Capsule 25 mcg PO QAM RF: 0 omega-3 fatty acids Capsule 1,000 mg PO QAM RF: 0 diphenhydramine HCl 50 mg Capsule 50 mg PO HS PRN (Reason: Allergy Symptoms) RF: 0 Discontinued aspirin [Aspir-81] 81 mg Tablet,Delayed Release (Dr/Ec) 81 mg PO QAM RF: 0 Discharge Orders: Discharge Order (Routine); Ordered 03/29/20 Ordered By: Karl Mckeon Admission Data Admit Date/Time: 03/28/20 09:28 Attending Provider: Dereck Garnett Admit Provider: Dereck Garnett Primary Care Provider: José Miguel Mata Other Providers: [facility] Other Interventions: Discharge Summary Assessment (RN) Last Done: 03/29/20 08:30
== END 2020-03-29 16:19 | disposition home health service (06) ==
LOC: ASU 04:57 → INTOOBSV 09:28 → 3W 09:28